=== PATIENT | female | born 1965 ===

== ENCOUNTER 2022-07-28 18:17 | Outpatient (REF) | payer OTHER, SELFPAY ==
[2022-07-28 18:57] LABS: HCT 43.8 % (36.0-46.0); HGB 14.4 g/dL (11.2-15.7); MCH 28.9 pg (27.0-33.0); MCHC 32.9 % (32.0-36.0); MCV 88 fL (80-95); MPV 11.6 fL (8.0-11.0); Platelet Count 302 10^3/uL (130-400); RBC 4.98 10^6/uL (3.93-5.22); RDW 12.9 % (11.7-14.6); RDW-SD 41.7 fL; WBC 7.38 10^3/uL (4.4-10.8)
[2022-07-28 18:59] LABS: ESR 11 mm/hr (0-30)
[2022-07-28 19:26] LABS: ALT 33 U/L (14-59); AST 20 U/L (15-37); Albumin 3.6 g/dL (3.4-5.0); Alkaline Phosphatase 112 U/L (46-116); Anion Gap 10.6 mmol/L (3-11); BUN 12 mg/dL (7-18); Bilirubin, Total 0.3 mg/dL (0.2-1.0); CO2 26.4 mmol/L (21.0-32.0); CREATININE 0.7 mg/dL (0.55-1.02); Calcium 8.8 mg/dL (8.5-10.1); Calculated LDL 199 mg/dL (<100); Chloride 106 mmol/L (98-107); Cholesterol 288 mg/dL (<200); Estimated GFR 100.19 (mL/min/1.73m2); Glucose 110 mg/dL (74-106); HDL Cholesterol 43 mg/dL (40-60); Potassium 4.5 mmol/L (3.5-5.1); Sodium 143 mmol/L (136-145); Total Protein 6.1 g/dL (6.4-8.2); Triglyceride 234 mg/dL (<150)
[2022-07-28 21:00] LABS: C-Reactive Protein 0.48 mg/dL (0.0-0.3); Uric Acid 2.6 mg/dL (2.6-6.0)
[2022-07-29 17:33] LABS: Rheumatoid Factor <8.6 IU/mL (<12.0)
[2022-07-30 09:31] LABS: Cyclic Citrullinated Peptide <2.5 U/mL (<5.0)
[2022-07-30 13:55] LABS: ANA Interpretation Negative (Negative)
== END 2022-07-28 18:18 | disposition home or self-care (01) ==
LOC: NCHCN 18:17
PROVIDERS: PCP Nurse Practitioner Family; Visit Provider Nurse Practitioner Family
DX: E78.01 Familial hypercholesterolemia (principal); M25.50 Pain in unspecified joint
CPT/HCPCS: 80053; 80061; 85027; 85652; 86200; 84550; 86038; 86140; 86431

== ENCOUNTER 2022-09-18 13:45 | Outpatient (REF) | payer OTHER, SELFPAY ==
[2022-09-18 15:57] LABS: Abs Immature Grans 0.03 10^3/uL (0.0-0.06); Absolute Basophil Count 0.07 10^3/uL (0.0-0.2); Absolute Eosinophil Count 0.21 10^3/uL (0.0-0.7); Absolute Monocyte Count 0.77 10^3/uL (0.1-0.8); Absolute Neutrophil Count 5.49 10^3/uL (1.2-6.7); Basophils % 0.8; Eosinophils % 2.4; HCT 41.5 % (36.0-46.0); HGB 13.7 g/dL (11.2-15.7); Immature Grans % 0.3; Lymphocytes % 25.9; MCH 29.8 pg (27.0-33.0); MCV 90 fL (80-95); MPV 11.3 fL (8.0-11.0); Monocytes % 8.7; Neutrophils % 61.9; Platelet Count 284 10^3/uL (130-400); RDW 13.2 % (11.7-14.6); RDW-SD 43.8 fL; WBC 8.87 10^3/uL (4.4-10.8)
[2022-09-18 16:19] LABS: ALT 48 U/L (14-59); AST 27 U/L (15-37); Albumin 3.4 g/dL (3.4-5.0); Alkaline Phosphatase 109 U/L (46-116); BUN 14 mg/dL (7-18); Bilirubin, Total 0.3 mg/dL (0.2-1.0); CREATININE 0.9 mg/dL (0.55-1.02); Calcium 9.4 mg/dL (8.5-10.1); Chloride 105 mmol/L (98-107); Estimated GFR 73.64 (mL/min/1.73m2); Glucose 102 mg/dL (74-106); Potassium 4.1 mmol/L (3.5-5.1); Sodium 141 mmol/L (136-145); Total Protein 6.5 g/dL (6.4-8.2)
[2022-09-19 09:03] LABS: Hepatitis B Surface Ag Negative (Negative)
[2022-09-19 09:41] LABS: Hepatitis C Ab w Rflx HCV PCR Negative (Negative)
== END 2022-09-18 13:46 | disposition home or self-care (01) ==
LOC: NCHCN 13:45
PROVIDERS: PCP Nurse Practitioner Family; Visit Provider Nurse Practitioner Family
DX: M25.59 Pain in other specified joint (principal); Z11.59 Encounter for screening for other viral diseases
CPT/HCPCS: 80053; 86803; 87340; 85025

== ENCOUNTER 2025-06-26 18:19 | Outpatient (REF) | payer BC, SELFPAY ==
[2025-06-26 19:51] LABS: Abs Immature Grans 0.02 10^3/uL (0.0-0.06); HCT 40.4 % (36.0-46.0); HGB 13.4 g/dL (11.2-15.7); Immature Grans % 0.2 %; MCH 29.4 pg (27.0-33.0); MCHC 33.2 % (32.0-36.0); MCV 89 fL (80-95); MPV 11.2 fL (8.0-11.0); Platelet Count 326 10^3/uL (130-400); RBC 4.56 10^6/uL (3.93-5.22); RDW 12.9 % (11.7-14.6); RDW-SD 42.1 fL; WBC 9.82 10^3/uL (4.4-10.8)
[2025-06-26 19:55] LABS: ESR 6 mm/hr (0-30)
[2025-06-26 20:07] LABS: ALT 36 U/L (14-59); AST 15 U/L (15-37); Albumin 3.9 g/dL (3.4-5.0); Alkaline Phosphatase 110 U/L (46-116); Anion Gap 8.5 mmol/L (3-11); BUN 15 mg/dL (7-18); Bilirubin, Total 0.2 mg/dL (0.2-1.0); CO2 27.5 mmol/L (21.0-32.0); Calcium 9.2 mg/dL (8.5-10.1); Chloride 105 mmol/L (98-107); Estimated GFR 98.34 (mL/min/1.73m2); Glucose 90 mg/dL (74-106); Potassium 4.2 mmol/L (3.5-5.1); Sodium 141 mmol/L (136-145); Total Protein 6.5 g/dL (6.4-8.2)
[2025-06-26 20:15] LABS: C-Reactive Protein < 0.50 mg/dL (<or=0.5)
[2025-06-28 14:02] LABS: RNP Ab, IgG <6.0 CU (<20.0)
== END 2025-06-26 18:20 | disposition home or self-care (01) ==
LOC: NCHCN 18:19
PROVIDERS: Visit Provider Nurse Practitioner Family
DX: M35.9 Systemic involvement of connective tissue, unspecified (principal)
CPT/HCPCS: 80053; 85652; 86200; 85025; 86038; 86140; 86235; 86431

== ENCOUNTER 2025-07-21 14:15 | Outpatient (CLI) | payer BC, SELFPAY ==
[2025-07-21 14:17] LABS: Calculated LDL 208 mg/dL (<100); Cholesterol 321 mg/dL (<200); HDL Cholesterol 42 mg/dL (>or=50); Triglyceride 359 mg/dL (<150)
== END 2025-07-21 14:16 | disposition home or self-care (01) ==
LOC: LBO 14:16
PROVIDERS: PCP Nurse Practitioner Family; Visit Provider Nurse Practitioner Family
DX: E78.01 Familial hypercholesterolemia (principal)
CPT/HCPCS: 36415; 80061

== ENCOUNTER 2025-07-24 12:48 | Outpatient (CLI) | payer BC, SELFPAY ==
--- NOTE | 2025-07-24 12:45 | RT.EKG_ITS ---
APPROVED REPORT Exam: Resting ECG Reason for Exam: PVC Patient Location: O HR:71 bpm ECG Measurements Heart Rate 71 AXIS VT 193 P 34 QRSd 103 QRS -63 QT 412 T 29 QTc 448 Conclusion Sinus rhythm...normal P axis, V-rate 50- 99 Left axis
== END 2025-07-24 12:49 | disposition home or self-care (01) ==
LOC: DI.CARD 12:58
PROVIDERS: PCP Nurse Practitioner Family; Visit Provider Registered Nurse
DX: E78.01 Familial hypercholesterolemia (principal); I49.3 Ventricular premature depolarization
CPT/HCPCS: 93010

== ENCOUNTER 2025-08-03 09:05 | Outpatient (CLI) | payer BC, SELFPAY ==
[2025-08-03 08:27] LABS: Creatine Kinase 58 U/L (26-192)
== END 2025-08-03 09:06 | disposition home or self-care (01) ==
LOC: LBO 09:05
PROVIDERS: PCP Nurse Practitioner Family; Visit Provider Nurse Practitioner Family
DX: M79.18 Myalgia, other site (principal); G89.29 Other chronic pain
CPT/HCPCS: 36415; 82550; 82085

== ENCOUNTER 2025-08-07 07:42 | Outpatient (CLI) | payer BC, SELFPAY ==
--- NOTE | 2025-08-07 05:00 | ETT_ITS ---
APPROVED REPORT Exam: Exercise Treadmill Patient Location: Out-Patient Room/Bed: Stress Nurse: Ama Vaughn RN Ordering Provider:COLLEEN PEREZ, Contact Number: [phone] BMI: 32.27 Baseline Rhythm: Sinus Rhythm Comment: Flat/inverted T waves - aVL,V2,V3 Indications: chest pain, dyspnea Medical History Medical History: Familiar hypercholesteremia, connective tissue disorder, raynauds Cardiac Medications: Repatha, Zetia Allergies: NSAIDS, Statins, Aspirin, Aspartame, Sulfasalazine, diptheria/pertussis, red yeast rice, latex Cardiac Risk Factors: +family history, +HLD Previous Cardiac Procedures: Cardiac cath 2007 Pretest Chest Pain Characteristics: None Exercise History: Sedentary Physical Disabilities: None Lung Sounds: LCTA Heart Sounds: Distant, S1/S2 Stress Test Details Test: Exercise stress testing was performed using a Chet protocol. Rest Stress HR Resting HR Supine: 64 bpm Max Heart Rate (APMHR): 159 bpm Resting HR Standin bpm Target HR (85% APMHR): 135 bpm Max HR Achieved: 145 bpm % of APMHR: 91 Recovery HR: 83 bpm HR response to stress: Normal HR response to stress BP Resting BP Supine: 118/82 mmHg Resting BP Standin/78 mmHg Max BP: 178/80 mmHg Recovery BP: 132/74 mmHg BP response to stress: Normal blood pressure response to stress. ECG Resting ECG: Sinus Rhythm Ectopy: None Comment: Flat/inverted T waves - aVL,V2,V3 Stress ECG: Sinus Tachycardia ST Change: No significant ST segment changes noted Arrhythmia: Rare PVC Comment: Pt had some artifact during stress portion of test, making it difficult to read at times Recovery ECG: Sinus Rhythm Recovery ST Change: No significant ST segment changes noted Recovery Arrhythmia: None Clinical Reason for Termination: Fatigue, Recovery button acciently pushed Stress Symptoms: Fatigue, Mild shortness of breath, palpitations Exercise duration: 3 min11 sec Highest Stage Reached: Stage 2: 2.5 mph at 12% grade. Exercise capacity: 4.85 METs Angina Score: None Rate Pressure Product: [id number] Stress ECG Conclusion 1. Resting EKG showed indeterminate axis, low voltage 2. Patient exercised on the Chet protocol and completed a workload of 4.7 METS 3. Normal heart rate and blood pressure response to exercise. The patient achieved 91% of maximal predicted heart rate for age 4. There was no electrocardiographic evidence of myocardial ischemia 5. There were no significant dysrhythmias 6. Exercise capacity was below average for age Stress Test Summary STAGE Time (mins) Speed (mph) Grade (%) HR BP SpO2 SYMPTOMS METS Supine 64 118/82 97% Standing 81 124/78 97% 1 3 1.7 10 135 168/88 4.5 2 6 2.5 12 138 mild shortness of breath 7 1 min recovery 124 178/80 palpitations 3 min recovery 90 160/78 98% 6 min recovery 85 132/74 98% Patient was exercising in stage 2 and had already reached THR - Recovery button was accidently selected, stopping the test maybe a minute or less sooner than patient could have tolerated. Artifact present in a few leads during test making it difficult to read at times. Patient had no adverse signs or symptoms, left ambulatory in no apparent distress.
== END 2025-08-07 08:02 ==
PROVIDERS: PCP Nurse Practitioner Family; Visit Provider Internal Medicine Cardiovascular Disease
DX: R07.9 Chest pain, unspecified (principal); R06.00 Dyspnea, unspecified
CPT/HCPCS: 93017

== ENCOUNTER 2025-08-28 03:27 | Outpatient (CLI) | payer BC, SELFPAY ==
--- NOTE | 2025-08-28 13:30 | DI.US_ITS ---
APPROVED REPORT EXAM: Comprehensive 2D, Doppler, and color-flow Echocardiogram Patient Location: Out-Patient Barrel Leveler: Jackie Christopher RDCS (AE) Indications: Chest pain, Dyspnea Other Information Study Quality: Adequate Conclusion Normal left ventricular wall thickness and chamber size. Ejection fraction is 60%. Wall motion is normal Normal right ventricular size and function Both atria are normal in size There is no structural or hemodynamically significant valvular disease Borderline dilated ascending aorta measuring 3.44 cm Wall motion Left Ventricle The left ventricle is normal size. The left ventricular systolic function is normal. The left ventricular ejection fraction is within the normal range. There is normal left ventricular wall thickness. There is normal LV segmental wall motion. There is no ventricular septal defect visualized. LVEF is 60%. Right Ventricle The right ventricle is normal size. The right ventricular systolic function is normal. Atria The left atrium size is normal. The right atrium size is normal. The interatrial septum is intact with no evidence for an atrial septal defect. Aortic Valve The aortic valve is normal in structure. Aortic valve is trileaflet. There is no aortic valvular stenosis. Trace aortic regurgitation. Mitral Valve The mitral valve is normal in structure. No evidence of mitral valve stenosis. Trace mitral regurgitation. Tricuspid Valve The tricuspid valve is normal in structure. There is no tricuspid valve stenosis. Trace tricuspid regurgitation. Unable to assess PA pressure. Pulmonic Valve The pulmonary valve is normal in structure. There is no pulmonic valvular stenosis. There is no pulmonic valvular regurgitation. Great Vessels The aortic root is normal in size. The ascending aorta is mildly dilated. Aortic arch is not well visualized. IVC is normal in size and collapses >50% with inspiration. Pericardium There is no pericardial effusion. 2D Dimensions IVSD d PLAX 0.90 cm F: 0.6-1.0 Ao Root d 2.95 cm F: 2.7 - 3.3 LVPW d PLAX 0.91 cm F: 0.6 - 1.0 Ao Asc Diam d 3.44 cm F: 2.3 - 3.1 LVID d PLAX 4.60 cm F: 3.8 - 5.2 LVDs 3.12 cm F: 2.2 - 3.5 LV EF Teichholz 60.2 % FS 31.99 % LV EDV (Teich) 96.8 mL LV ESV (Teich) 38.5 mL M-Mode TAPSE 1.62 cm (M/F) >1.7 Auto EF LV EDV A4C 114.8 mL LV EDV A2C 136.7 mL LV EDV BP 128.2 mL LV ESV A4C 45.1 mL LV ESV A2C 56.1 mL LV ESV BP 50.6 mL LVEF(%) A4C 60.7 % LVEF(%) A2C 58.9 % LVEF(%) BP 60.5 % LV SV A4C 69.7 ml LV SV A2C 80.6 ml LV SV BP 77.5 ml LV CO A4C 3.8 L/min LV CO A2C 4.8 L/min LV CO BP 4.3 L/min HR A4C 54.55 BPM HR A2C 59.71 BPM LV EDV Index (BP) LA Volume LA Length A4C 5.1 cm LA Length A2C 5.3 cm LA Area A4C s 16.36 cm2 LA Area A2C s 18.65 cm2 LA Vol A4C A-L 44.75 mL LA Vol A2C A-L 55.82 mL LA Vol Biplane A-L 51.0 mL LA Vol/BSA A4C A-L LA Vol/BSA A2C A-L LA Vol/BSA BP A-L 24.8 mL/m2 LA Vol A4C MOD 42.1 mL LA Vol A2C MOD 50.9 mL LA Vol BP MOD 47.0 mL RA Volume RA Area A4C 13.1 cm2 RA ESV A4C (A-L) 32.3mL RA Vol/BSA A4C A-L RA Length A4C 4.5 cm RA ESV A4C (MOD) 30.5mL LV Diastology MV E' medial 0.097 (>0.07 m/s) MV E Vmax 0.97 (0.4-1.3 m/s) MV E/E' MED 9.96 (<14) MV A Vmax 0.90 (0.4-1.3 m/s) MV E' lateral 0.118 (>0.1 m/s) E/A Ratio 1.1 MV E/E' LAT 8.23 (<14) MV E' Average 0.108 m/s MV E/E'(average) 9.01 Aortic Valve AoV Vmax 1.48 m/s LVOT Vmax 1.20 m/s AoV Peak Grad 8.8 mmHg LVOT Peak Grad 5.8 mmHg AoV Area (Vmax) 2.49 cm2 LVOT VTI 0.291 m AoV VTI 0.353 m LVOT Mean Grad 3.3 mmHg AoV Mean Angelito. 1.04 m/s LVOT SV 89.42 mL AoV Mean Grad 4.9 mmHg LVOT Diam s 1.95 cm AoV Area (VTI) 2.53 cm2 AV Regurg Peak Gr. 8.77 mmHg Velocity Ratio 0.81 Mitral Valve MV DT 206 (160-240 msec) MV Vmax TIPS 0.90 m/s MV Mean Grad 1.4 (<2mmHg) MV VTI 0.349 m Pulmonary Valve PV Vmax 1.00 (0.5-1.5 m/s) RVOT Vmax 0.82 m/s PV Peak Grad 4.0 mmHg RVOT Peak Gr. 2.7 mmHg PV Mean Angelito 0.71 m/s RVOT VTI 0.243 m PV Mean Grad 2.3 mmHg RVOT Mean Gr. 1.7 mmHg Tricuspid Valve TV S' 0.11 m/s
== END 2025-08-28 03:47 ==
LOC: DI 03:27
PROVIDERS: PCP Nurse Practitioner Family; Visit Provider Internal Medicine Cardiovascular Disease
DX: R07.9 Chest pain, unspecified (principal); R06.00 Dyspnea, unspecified
CPT/HCPCS: 93306